=== PATIENT | female | born 2000 | race Caucasian/White ===

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

== ENCOUNTER 2018-01-07 09:19 | Emergency (ER) | payer OTHER ==
[2018-01-07 09:28] VITALS: BP 114/76; PULSE 94; RESP 16; TEMP 98.2
--- NOTE | 2018-01-07 10:49 | ED ---
Chest Pain HPI - General Chief Complaint: Chest Pain Stated Complaint: chest pain, lt sided weakness Time Seen by Provider: 01/07/18 09:27 Source: patient, RN notes reviewed Mode of arrival: ambulatory Limitations: no limitations - History of Present Illness Initial Comments: This a 17-year-old female presents emergency Department chief complaint of chest pain, left arm pain. Patient states that she has been in the hospital and has had outpatient follow-up with audiology for palpitations and chest pain. Patient states that she has a normal echo while in the hospital and has a normal troponins. Patient states that she had a recent stress test which showed some small abnormality's and they wanted to perform a stress test with echo. 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 Patient states the pain made it feel weak but she has no focal weakness. Denies any headache, dizziness, neck pain, back pain, nausea vomiting. Patient states that she does not take any current medications. Patient has no family heart disease history. Patient states that most her symptoms started over a month ago after taking Adipex. - Related Data Home Medications Medication Instructions Recorded Confirmed Medroxyprogesterone Acetate 150 mg IM Q90D 11/24/17 11/24/17 [Depo-Provera] Previous Rx's Medication Instructions Recorded Acetaminophen Tab [Tylenol] 650 mg PO Q4HR PRN tab 11/25/17 Albuterol Inhaler [Ventolin Hfa 1 - 2 puff INHALATION RT-Q6H PRN 11/25/17 Inhaler] #1 inhaler Allergies Allergy/AdvReac Type Severity Reaction Status Date / Time nickel AdvReac Rash/Hives Verified 01/07/18 09:31 tuna Allergy Rash/Hives Uncoded 01/07/18 09:31 Review of Systems ROS Statement: Those systems with pertinent positive or pertinent negative responses have been documented in the HPI. ROS Other: All systems not noted in ROS Statement are negative. EKG Findings - EKG Comments: EKG Findings:: EKG performed at 9:44 sinus rhythm with short CA rate of 78 CA 102 QRS 102 QT/QTC 392/446 there is noted prior short CA on prior EKG no acute abnormality's. Past Medical History Past Medical History: Asthma Additional Past Medical History / Comment(s): Palpitations 10/2017, Abnormal Stress Test History of Any Multi-Drug Resistant Organisms: None Reported Past Surgical History: Section Additional Past Surgical History / Comment(s): 12/24/16 Past Anesthesia/Blood Transfusion Reactions: No Reported Reaction Past Psychological History: No Psychological Hx Reported Smoking Status: Never smoker Past Alcohol Use History: None Reported Past Drug Use History: None Reported - Past Family History Mother Family Medical History: No Reported History Additional Family Medical History / Comment(s): Mother is healthy. Thyroid issues run on mother's side of family. Father Family Medical History: Hypertension General Exam Limitations: no limitations General appearance: alert, in no apparent distress Head exam: Present: atraumatic, normocephalic, normal inspection Neck exam: Present: normal inspection, full ROM. Absent: tenderness, meningismus, lymphadenopathy Respiratory exam: Present: normal lung sounds bilaterally, chest wall tenderness (Moderate left anterior, shoulder region). Absent: respiratory distress, wheezes, rales, rhonchi, stridor Cardiovascular Exam: Present: regular rate, normal rhythm, normal heart sounds. 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 Absent: tenderness Neurological exam: Present: alert, oriented X3, CN II-XII intact, reflexes normal. Absent: motor sensory deficit Course Vital Signs 01/07/18 09:21 Temperature 98.2 F Pulse Rate 94 Respiratory 16 Rate Blood Pressure 114/76 O2 Sat by Pulse 97 Oximetry Chest Pain MDM - MDM 17-year-old female presented for left-sided chest discomfort. Patient has reproducible left-sided chest wall and left shoulder pain. Pain is worse with movement. EKG does not show an acute abnormality's there was no changes from prior. Patient has had adequate out patient follow-up and has stress echo scheduled. This is felt not to be cardiac in nature. This is reproducible muscular skeletal pain. We discussed return parameters and close follow-up. Disposition Clinical Impression: Chest wall pain Disposition: HOME SELF-CARE Condition: Stable Instructions: Chest Wall Pain (ED) Additional Instructions: Please return to the Emergency Department if symptoms worsen or any other concerns. Is patient prescribed a controlled substance at d/c from ED?: No Referrals: Josie Woods MD [Primary Care Provider] - 1-2 days Time of Disposition: 10:49
--- NOTE | 2018-01-07 10:52 | XR ---
EXAMINATION TYPE: XR chest 2V DATE OF EXAM: 01/07/2018 HISTORY: Chest tightness. REFERENCE: Previous study dated 11/27/2017. FINDINGS: The lungs are clear. Pleural space are clear. The heart is not enlarged. IMPRESSION: NORMAL CHEST.
== END 2018-01-07 11:35 | disposition home or self-care (01) ==
LOC: EC 09:19
DX: R07.89 Other chest pain (principal); M25.512 Pain in left shoulder; J45.909 Unspecified asthma, uncomplicated; Z79.899 Other long term (current) drug therapy; Z91.013 Allergy to seafood; Z91.048 Other nonmedicinal substance allergy status
CPT/HCPCS: 71046; 93005; 99285

== ENCOUNTER 2019-09-21 19:20 | Outpatient (CLI) | payer OTHER, BC ==
[2019-09-21] MEDS ORDERED: LACTATED RINGERS 1,000 ML IV ONE (20:15)
[2019-09-21 20:26] LABS: Appearance,Urine Cloudy (Clear); Bacteria,Urine Rare /hpf; Bilirubin,Urine Negative (Negative); Blood,Urine Negative (Negative); Color,Urine Yellow; Glucose,Urine (UA) Negative (Negative); Hyaline Casts,Urine 5 /lpf (0-2); Ketones,Urine Negative (Negative); Leukocyte Esterase,Urine Moderate (Negative); Mucus,Urine Rare /hpf; Nitrite,Urine Negative (Negative); Protein,Urine Negative (Negative); RBC,Urine 1 /hpf (0-5); Specific Gravity,Urine 1.016 (1.001-1.035); Squamous Epithelial Cell,Urine 26 /hpf (0-4); Urobilinogen,Urine <2.0 mg/dL (<2.0); WBC,Urine 11 /hpf (0-5)
[2019-09-21 20:36] LABS: Basophils % (A) 0 %; Eosinophils # (A) 0.3 k/uL (0-0.7); Eosinophils % (A) 3 %; HCT 36.4 % (34.0-46.0); HGB 11.9 gm/dL (11.4-16.0); Lymphocytes # (A) 1.9 k/uL (1.0-4.8); Lymphocytes % (A) 17 %; MCH 29.5 pg (25.0-35.0); MCHC 32.7 g/dL (31.0-37.0); MCV 90.2 fL (80.0-100.0); Mean Platelet Volume 10.3; Monocytes # (A) 0.4 k/uL (0-1.0); Monocytes % (A) 4 %; Neutrophils # (A) 8.4 k/uL (1.3-7.7); Neutrophils % (A) 75 %; Platelet Count 114 k/uL (150-450); RBC 4.04 m/uL (3.80-5.40); RDW 14.3 % (11.5-15.5); WBC 11.3 k/uL (3.8-10.6)
[2019-09-21 21:34] VITALS: BP 122/59; PULSE 102; RESP 16; TEMP 98.3
--- NOTE | 2019-09-22 07:28 | P.MSEPDOC ---
Presenting Problems - Arrival Data Date of Arrival on Unit: 09/21/19 Time of Arrival on Unit: 19:18 Mode of Transport: Ambulatory - Complaint OB-Reason for Admission/Chief Complaint: Pain Comment: RUQ pain x3 days, decreased movement Medical History - Information : 2 Para: 1 Number of Living Children: 1 - Gestational Age Gestational Age by ADAM (wks/days): 28 Weeks and 5 Days Review of Systems - Review of Systems Constitutional: No problems Breast: No problems ENT: No problems Cardiovascular: No problems Respiratory: No problems Gastrointestinal: No problems Genitourinary: No problems Musculoskeletal: No problems Neurological: No problems Skin: No problems Vital Signs - Temperature Temperature: 98.3 F Temperature Source: Temporal Artery Scan - Pulse Right Sitting Brachial Pulse Rate: 102 Pulse Assessment Method: Automatic Cuff - Respirations Respiratory Rate: 16 Oxygen Delivery Method: Room Air O2 Sat by Pulse Oximetry: 98 - Blood Pressure Right Arm Sitting Blood Pressure: 122/59 Blood Pressure Mean: 80 Blood Pressure Source: Automatic Cuff Medical Screen Scoring (Pre) - Cervical Exam Dilation: 0 cm = 0 - Uterine Contractions Frequency: > or = 36 weeks =2 Duration: > 40 seconds = 2 Intensity: N/A - Maternal Vital Signs Maternal Temperature: N/A Maternal Blood Pressure: N/A Signs of Preeclampsia: N/A Maternal Respirations: N/A - Maternal Trauma Maternal Trauma: N/A - Assessment - Baby A Baseline FHR: 130 Heart Rate - NICHD Category: Category I (Normal) = 0 NST: Reactive Position: N/A Station: N/A - Total Score - Baby A Total Score - Baby A: 4 - Total Score - Baby B Total Score - Baby B: 4 - Total Score - Baby C Total Score - Baby C: 4 - Level of Risk - Baby A Level of Risk - Baby A: Low (0-5) - Level of Risk - Baby B Level of Risk - Baby B: Low (0-5) - Level of Risk - Baby C Level of Risk - Baby C: Low (0-5) Physician Notification (Pre) - Physician Notified Physician Notified Date: 09/21/19 Physician Notified Time: 20:05 New Order Received: Yes - Notification Comment Comment: iv hydrate, ffn, ua, cbc Disposition - Disposition OB Disposition: Discharge to home Discharge Date: 09/21/19 Discharge Time: 21:23 I agree with the RN Medical Screening Exam: Yes Risk & Benefit of care provided described in d/c instruction: Yes Diagnosis: PAIN, UNSPECIFIED (Patient presented with several days complaints of right upper sided pain. No nausea vomiting or fevers. Cervix is closed. fibronectin is negative. Patient given some IV hydration with resolution of any contraction she was having. At this point there is no evidence of labor. Patient instructed to go home and increase her fluids. Return if she had any concerns are worsening symptomatology.)
== END 2019-09-21 21:23 | disposition home or self-care (01) ==
LOC: FBPOP 19:20
PROVIDERS: ATTEND Obstetrics & Gynecology
DX: O36.8130 Decreased fetal movements, third trimester, not applicable or unspecified (principal); Z3A.28 28 weeks gestation of pregnancy
CPT/HCPCS: 59025; 96365; 82731; 85025; 81001; G0463; 96360; 99214

== ENCOUNTER 2019-11-18 20:15 | Outpatient (CLI) | payer OTHER ==
[2019-11-18 21:19] VITALS: BP 119/68; PULSE 103; RESP 16; TEMP 97.6
--- NOTE | 2019-11-19 07:41 | P.MSEPDOC ---
Presenting Problems - Arrival Data Date of Arrival on Unit: 11/18/19 Time of Arrival on Unit: 20:15 Mode of Transport: Wheelchair - Complaint OB-Reason for Admission/Chief Complaint: Headache, Visual Disturbances, Dizziness Medical History - Information : 2 Para: 1 Term: 1 : 0 Abortions: Spontaneous or Elective: 0 Number of Living Children: 1 - Gestational Age Gestational Age by ADAM (wks/days): 37 Weeks and 0 Days - History Complications: Prior Review of Systems - Review of Systems Constitutional: No problems Breast: No problems ENT: No problems Cardiovascular: No problems Respiratory: No problems Gastrointestinal: No problems Genitourinary: No problems Musculoskeletal: No problems Neurological: Dizziness Skin: No problems Vital Signs - Temperature Temperature: 97.6 F Temperature Source: Temporal Artery Scan - Pulse Right Pulse Rate: 103 Pulse Assessment Method: Automatic Cuff - Respirations Respiratory Rate: 16 Oxygen Delivery Method: Room Air O2 Sat by Pulse Oximetry: 98 - Blood Pressure Right Arm Blood Pressure: 119/68 Blood Pressure Mean: 85 Blood Pressure Source: Automatic Cuff Medical Screen Scoring (Pre) - Cervical Exam Dilation: Exam Deferred Effacement: Exam Deferred Membranes: Intact - Uterine Contractions Frequency: N/A Duration: N/A Intensity: N/A - Maternal Vital Signs Maternal Temperature: N/A Maternal Blood Pressure: N/A Signs of Preeclampsia: N/A Maternal Respirations: N/A - Maternal Trauma Maternal Trauma: N/A - Assessment - Baby A Baseline FHR: 130 Heart Rate - NICHD Category: Category I (Normal) = 0 NST: Reactive Position: N/A Station: N/A - Total Score - Baby A Total Score - Baby A: 0 - Total Score - Baby B Total Score - Baby B: 0 - Total Score - Baby C Total Score - Baby C: 0 - Level of Risk - Baby A Level of Risk - Baby A: Low (0-5) - Level of Risk - Baby B Level of Risk - Baby B: Low (0-5) - Level of Risk - Baby C Level of Risk - Baby C: Low (0-5) Physician Notification (Pre) - Physician Notified Physician Notified Date: 11/18/19 Physician Notified Time: 20:46 New Order Received: Yes - Notification Comment Comment: Dr. Maxwell called and notified of pt's presenting complaint of HENDRICKSON, dizziness, blurred vision since 1600. Pt's vitals are WNL. Pain is tolerable. NST reactive, no other complaints or concerns at this time. Physician ordered for pt to D/C home and to return if symptoms worsen or if she has any s/s of labor, etc. Medical Screen Scoring (Post) - Cervical Exam Dilation: Exam Deferred Effacement: Exam Deferred Membranes: Intact - Uterine Contractions Frequency: N/A Duration: N/A Intensity: N/A - Maternal Vital Signs Maternal Temperature: N/A Maternal Blood Pressure: N/A Signs of Preeclampsia: N/A Maternal Respirations: N/A - Pain Assessment Pain Location and Character: Head Pain Scale Used: Numeric (1 - 10) Pain Intensity: 3 Pain Management Goal: 3 Pain Description: *Acute Pain Frequency: Constant Pain Aggravating Factors: Bright Light Non-Pharmacological Interventions: Darkened Room, Distraction, Inactivity - Maternal Trauma Maternal Trauma: N/A - Assessment - Baby A Heart Rate: 130 Heart Rate - NICHD Category: Category I (Normal) = 0 NST: Reactive Position: N/A Station: N/A - Total Score Total Score - Baby A: 0 Total Score - Baby B: 0 Total Score - Baby C: 0 - Post Treatment Level of Risk Post Treatment Level of Risk - Baby A: Low (0-5) Post Treatment Level of Risk - Baby B: Low (0-5) Post Treatment Level of Risk - Baby C: Low (0-5) Disposition - Disposition OB Disposition: Discharge to home Discharge Date: 11/18/19 Discharge Time: 21:15 I agree with the RN Medical Screening Exam: Yes Risk & Benefit of care provided described in d/c instruction: Yes Diagnosis: HEADACHE
== END 2019-11-18 21:15 | disposition home or self-care (01) ==
LOC: FBPOP 20:15
PROVIDERS: ATTEND Obstetrics & Gynecology
DX: O99.89 Other specified diseases and conditions complicating pregnancy, childbirth and the puerperium (principal); R51 Headache; Z3A.37 37 weeks gestation of pregnancy
CPT/HCPCS: 59025; G0463; 99215

== ENCOUNTER 2019-12-05 05:55 | Inpatient (IN) | payer BC, OTHER ==
[2019-12-04 15:45] VITALS: BMI 38.1
--- NOTE | 2019-12-04 21:42 | P.HPOB ---
History of Present Illness H&P Date: 12/04/19 Chief Complaint: Scheduled repeat section This is a 19 y.o. female, gravida2, para 1, with an estimated date of confinement of 12/11/2019, estimated gestational age of 39-1/7 weeks, who presents for scheduled repeat section. She admits to good movement. has been complicated by thrombocytopenia. She has seen Dr. Romero for this and recently was given a platelet transfusion in preparation for section. Last platelet count was 84,000. She has experienced irregular contractions. labs: GC/Chlamydia-neg RPR-NR Random glucose-83 Hepatits B surface antigen-neg Rubella-immune Hemoglobin-13 Blood type-O+ Quad screen-neg 1 hr. GTT-112 GBS-neg OB Hx: . Hx 1 for failure to progress. 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 Social Hx: Single. Unemployed. Review of Systems Constitutional: Denies chills, Denies fever Eyes: denies blurred vision, denies pain Ears: left: decreased hearing Ears, nose, mouth and throat: Denies headache, Denies sore throat Cardiovascular: Denies chest pain, Denies shortness of breath Respiratory: Denies cough Gastrointestinal: Reports abdominal pain (Irreg. ctxs.) Genitourinary: Reports pelvic pain, Reports Musculoskeletal: Reports low back pain Integumentary: Denies pruritus, Denies rash Neurological: Denies numbness, Denies weakness Psychiatric: Denies anxiety, Denies depression Past Medical History Past Medical History: Asthma, Hearing Disorder / Deafness Additional Past Medical History / Comment(s): currently low platelets-received unit of platelets on 12-04-19, Hx Palpitations 10/2017, Abnormal Stress Test History of Any Multi-Drug Resistant Organisms: None Reported Past Surgical History: Section Additional Past Surgical History / Comment(s): 12/24/16 Past Anesthesia/Blood Transfusion Reactions: No Reported Reaction Additional Past Anesthesia/Blood Transfusion Reaction / Comment(s): received platelets 12-04-19 without problems Past Psychological History: No Psychological Hx Reported Smoking Status: Never smoker Past Alcohol Use History: None Reported Past Drug Use History: None Reported - Past Family History Mother Family Medical History: No Reported History Additional Family Medical History / Comment(s): Mother is healthy. Thyroid issues run on mother's side of family. Father Family Medical History: Hypertension Medications and Allergies Home Medications Medication Instructions Recorded Confirmed Type Pnv,Calcium 72/Iron/Folic Acid 1 tab PO BID 09/21/19 12/05/19 History [ Plus Tablet] Ferrous Sulfate [Iron (65 MG 325 mg PO BID 11/08/19 12/05/19 History Elemental)] predniSONE [Deltasone] 20 mg PO TID 12/04/19 12/05/19 History Allergies Allergy/AdvReac Type Severity Reaction Status Date / Time nickel AdvReac Rash/Hives Verified 12/04/19 15:37 tuna Allergy Rash/Hives Uncoded 12/04/19 15:37 Exam Osteopathic Statement: *. No significant issues noted on an osteopathic structural exam other than those noted in the History and Physical/Consult. Intake and Output 12/04/19 12/04/19 12/04/19 06:59 14:59 22:59 Other: Weight 91.626 kg HEENT: within normal limits Heart: regular rate and rhythm Lungs: clear to auscultation bilaterally Abd: soft, , non-tnder Extremities: neg. Chauncey's heart tones: 140's by doppler Cervix: fingertip/60%/-3 Results Result Diagrams: 12/05/19 07:00 Assessment and Plan (1) 39 weeks gestation of Current Visit: No Status: Acute Code(s): Z3A.39 - 39 WEEKS GESTATION OF SNOMED Code(s): 20598822 (2) Thrombocytopenia affecting Current Visit: No Status: Acute Code(s): O99.119 - OTH DIS OF BLD/BLD-FORM ORG/IMMUN MECHNSM COMP PREG,UNSP TRI; D69.6 - THROMBOCYTOPENIA, UNSPECIFIED SNOMED Code(s): 375701652 Plan: Will give stress dose steroids. Admission for scheduled repeat section. I have discussed the risks, benefits, and alternative therapies for the above- mentioned procedure and for both sedation/anesthesia as well as necessary blood products administration, if indicated, as they pertain to this patient. The patient has indicated her understanding and acceptance of the risks and proc edures discussed.
[~2019-12-05 05:55] MED LIST: FAMOTIDINE 20 MG/2 ML VIAL IV PRN; HYDROmorphone 0.5 MG/0.5 ML SYRINGE IVP PRN; LACTATED RINGERS 1,000 ML IV SCH; LIDOCAINE 1% (10MG/ML) FOR IV START INTRADERMA PRN; ONDANSETRON 4 MG/2 ML VIAL IVP PRN
[2019-12-05] MEDS ORDERED: CITRIC ACID-SODIUM CITRATE 15 ML CUP PO ONE (06:13)
[2019-12-05] MEDS ORDERED: LACTATED RINGERS 1,000 ML IV ONE (06:13)
[2019-12-05 07:22] LABS: Anisocytosis Slight; Basophils % (A) 0 %; Eosinophils # (A) 0.1 k/uL (0-0.7); Eosinophils % (A) 1 %; HCT 34.6 % (34.0-46.0); HGB 11.1 gm/dL (11.4-16.0); Lymphocytes # (A) 2.1 k/uL (1.0-4.8); Lymphocytes % (A) 17 %; MCH 29.6 pg (25.0-35.0); MCHC 32.1 g/dL (31.0-37.0); Mean Platelet Volume 10.8; Monocytes # (A) 0.6 k/uL (0-1.0); Monocytes % (A) 5 %; Neutrophils # (A) 9.2 k/uL (1.3-7.7); Neutrophils % (A) 76 %; Platelet Count 111 k/uL (150-450); RBC 3.76 m/uL (3.80-5.40); RDW 16.1 % (11.5-15.5); WBC 12.1 k/uL (3.8-10.6)
[2019-12-05 07:48] LABS: INR 0.9 (<1.2); Prothrombin Time 9.4 sec (9.0-12.0)
[2019-12-05] MEDS ORDERED: LANOLIN CREAM 5 GM TUBE TOPICAL PRN (08:35)
[2019-12-05] MEDS ORDERED: diphenhydrAMINE 50 MG CAP PO PRN (08:35)
[2019-12-05] MEDS ORDERED: SIMETHICONE 80 MG CHEWABLE PO PRN (08:35)
[2019-12-05] MEDS ORDERED: NALOXONE 0.4 MG/ML 1 ML VIAL IV PRN (08:35)
[2019-12-05] MEDS ORDERED: HYDROcodone/APAP 7.5-325MG 1 EACH TAB PO PRN (08:35)
[2019-12-05] MEDS ORDERED: ACETAMINOPHEN TAB 325 MG TAB PO PRN (08:35)
[2019-12-05] MEDS ORDERED: ONDANSETRON 4 MG/2 ML VIAL IVP PRN (08:35)
[2019-12-05] MEDS ORDERED: OXYTOCIN 20 UNITS/1000 ML NS 1,000 ML IV SCH (08:35)
[2019-12-05] MEDS ORDERED: HYDROcodone/APAP 5-325MG 1 EACH TAB PO PRN (08:35)
[2019-12-05] MEDS ORDERED: diphenhydrAMINE 25 MG CAP PO PRN (08:35)
[2019-12-05] MEDS ORDERED: ZOLPIDEM 5 MG TAB PO PRN (08:35)
[2019-12-05] MEDS ORDERED: METOCLOPRAMIDE 5 MG/ML 2 ML VIAL IVP PRN (08:35)
[2019-12-05] MEDS ORDERED: diphenhydrAMINE 50 MG/ML 1 ML VIAL IVP PRN ×2 (08:35)
--- NOTE | 2019-12-05 08:50 | P.OP ---
Date of Procedure: 12/05/19 Preoperative Diagnosis: 1. Intrauterine at 39 and one sevenths weeks. 2. History of previous section. 3. Thrombocytopenia. Postoperative Diagnosis: Same Procedure(s) Performed: Repeat low transverse section Anesthesia: spinal (Duramorph) Surgeon: Florence Mccall Base Filler Operator #1: Perfecto Gomes Estimated Blood Loss (ml): 600 Pathology: other (Placenta) Condition: stable Disposition: floor Indications for Procedure: This is a 19-year-old female 2 para 1 at 39 and one sevenths weeks who presented to labor and delivery for scheduled repeat low transverse section. She has a history of previous section and has elected to proceed with repeat section. Of note during this she has been diagnosed with thrombocytopenia and has been following with hematology. They did put her on steroids about a week ago and then gave her a platelet transfusion yesterday. She did receive stress dose steroids prior to surgery. Hematology will be consulted for postoperative steroids. I have discussed the risks, benefits, and alternative therapies for the above- mentioned procedure and for both sedation/anesthesia as well as necessary blood products administration, if indicated, as they pertain to this patient. The patient has indicated her understanding and acceptance of the risks and procedures discussed. Operative Findings: A viable male is noted in the vertex presentation with scores of 8 at 1 minute and 9 at 5 minutes and weight of 8 lbs. 8 oz. Nuchal cord times one was noted. Normal uterus tubes and ovaries are noted. Description of Procedure: The patient is taken to the operating room where she is placed in the dorsal supine position with leftward tilt after spinal Duramorph anesthesia is given. She is prepped and draped in the normal sterile fashion. Skin was tested and found to be adequately anesthetized. A Pfannenstiel skin incision was made with a scalpel through the previous laparotomy scar. A second knife was used to carry the incision down to the underlying layer of fascia. The fascia was nicked in the midline with a scalpel and then extended laterally bilaterally with Scales scissors. The anterior lip of the fascia was grasped with 2 Zarina clamps and then dissected off the underlying rectus muscle in the midline with Scales scissors. The inferior aspect of the fascial incision was grasped with 2 Zarina clamps and dissected off the underlying rectus muscle and the midline with Scales scissors. Next the peritoneum layer was tented up with 2 hemostats and then entered sharply with the scalpel. The incision is extended superiorly and inferiorly with Metzenbaum scissors. Next a DeLee retractor is placed. The vesicouterine peritoneum is entered sharply with Metzenbaum scissors and extended laterally bilaterally with Metzenbaum scissors and then the bladder flap is pushed inferiorly. The lower uterine segment is incised in transverse fashion with the scalpel and then bluntly entered with a hemostat. Clear fluid is noted. The incision was then extended laterally bilaterally with 2 fingers. Next the infant's head is delivered through the incision. Nose and mouth are bulb suctioned. The remainder of the is easily delivered and placed on mother's abdomen. Cord is clamped and cut. is taken to warmer by nursing staff. Uterine fundus is gently massaged and placenta is delivered manually. Uterus is exteriorized and cleared of all clots and debris. Uterine incision is closed with 0 Vicryl suture in a running locked fashion. A second layer of 0 Vicryl suture is used in a running fashion for hemostasis. Once adequate hemostasis as assured, the vesicouterine peritoneum is reapproximated with 2-0 Vicryl suture in a running fashion. Posterior cul-de-sac is suctioned of all clots and debris. Uterus is returned to the abdomen. Incision is noted to be hemostatic. Peritoneal layer is closed with 0 Vicryl suture in a running fashion. Muscle layer is reapproximated with 0 Vicryl suture in interrupted fashion. Fascia layer is then closed with 0 PDS suture with 2 sutures meeting in the midline and the knots buried in either side and in the midline. The subcutaneous tissue was then closed with 2-0 Vicryl suture. Skin layer was then closed with navdeep. All sponge and needle counts are correct. The patient is taken to recovery room in stable condition.
[2019-12-05] MEDS: predniSONE 20 MG TAB PO SCH ×2 (10:55→20:39)
[2019-12-05] MEDS: SENNOSIDES-DOCUSATE SODIUM 1 EACH TAB PO SCH ×2 (10:56→20:39)
[2019-12-05] MEDS: KETOROLAC 15 MG/ML 1 ML VIAL IVP PRN ×2 (14:06→22:56)
[2019-12-05] MEDS: LACTATED RINGERS 1,000 ML IV SCH (14:14)
--- NOTE | 2019-12-06 00:30 | P.CONS ---
History of Present Illness - Reason for Consult Consult date: 12/05/19 thrombocytopenia - History of Present Illness The patient is a 19-year-old white female who was recently referred to our practice in early 11/14. She was in her second and was noted to have a drop in platelet counts into the 70-80,000 range. It is felt that she most likely had thrombocytopenia . Platelet counts remained in a safe range, that is above 50,000 The patient was scheduled for a . As it was felt that the patient count of greater than [id number] would be required for epidural, she received oral steroids for a week prior to surgery. As platelet counts were stable, but still below 100,000, she received a unit of platelets, and procedure to C- section on 12/05/19. Platelet count at the time of procedure was 111,000. She tolerated the procedure well and was delivered of a healthy baby boy Consult was placed for further evaluation and recommendations The patient was on 60 mg of prednisone prior to surgery, and received a stress dose of hydrocortisone for anesthesia. Review of Systems Constitutional: Reports fatigue Eyes: denies blurred vision, denies pain Ears: deny: decreased hearing, ear discharge, earache, tinnitus Ears, nose, mouth and throat: Denies headache, Denies sore throat Cardiovascular: Denies chest pain, Denies shortness of breath Respiratory: Denies cough Gastrointestinal: Denies abdominal pain, Denies diarrhea, Denies nausea, Denies vomiting Psychiatric: Denies anxiety, Denies depression Endocrine: Reports fatigue, Reports weight change Hematologic/Lymphatic: Reports as per HPI Past Medical History Past Medical History: Asthma, Hearing Disorder / Deafness Additional Past Medical History / Comment(s): currently low platelets-received unit of platelets on 12-04-19, Hx Palpitations 10/2017, Abnormal Stress Test History of Any Multi-Drug Resistant Organisms: None Reported Past Surgical History: Section Additional Past Surgical History / Comment(s): 12/24/16 Past Anesthesia/Blood Transfusion Reactions: No Reported Reaction Additional Past Anesthesia/Blood Transfusion Reaction / Comm: received platelets 12-04-19 without problems Past Psychological History: No Psychological Hx Reported Smoking Status: Never smoker Past Alcohol Use History: None Reported Past Drug Use History: None Reported - Past Family History Mother Family Medical History: No Reported History Additional Family Medical History / Comment(s): Mother is healthy. Thyroid issues run on mother's side of family. Father Family Medical History: Hypertension Medications and Allergies Home Medications Medication Instructions Recorded Confirmed Type Pnv,Calcium 72/Iron/Folic Acid 1 tab PO BID 09/21/19 12/05/19 History [ Plus Tablet] Ferrous Sulfate [Iron (65 MG 325 mg PO BID 11/08/19 12/05/19 History Elemental)] predniSONE [Deltasone] 20 mg PO TID 12/04/19 12/05/19 History Allergies Allergy/AdvReac Type Severity Reaction Status Date / Time nickel AdvReac Rash/Hives Verified 12/04/19 15:37 tuna Allergy Rash/Hives Uncoded 12/04/19 15:37 Physical Exam Vitals: Vital Signs Temp Pulse Resp BP Pulse Ox 12/05/19 16:00 98.1 F 80 16 110/51 98 12/05/19 11:35 97.0 F L 81 100/59 97 12/05/19 10:46 97.1 F L 79 17 113/56 98 12/05/19 10:16 80 17 113/60 97 12/05/19 09:45 96.8 F L 84 17 124/61 97 12/05/19 09:31 84 18 125/58 96 12/05/19 09:16 77 17 129/60 97 12/05/19 09:01 78 17 126/68 97 12/05/19 08:46 97.2 F L 77 17 129/59 97 12/05/19 06:13 96.8 F L 100 16 111/67 98 Intake and Output 12/05/19 12/05/19 12/06/19 14:59 22:59 06:59 Intake Total 480 Output Total 550 Balance -70 Intake: Oral 480 Output: Urine 550 Other: Voiding Method Indwelling Catheter - Constitutional General appearance: no acute distress - EENT Eyes: EOMI, PERRLA ENT: hearing grossly normal, normal oropharynx - Neck Neck: no lymphadenopathy Thyroid: bilateral: normal size - Respiratory Respiratory: bilateral: CTA - Cardiovascular Rhythm: regular Heart sounds: normal: S1, S2 - Gastrointestinal tenderness around surgical site General gastrointestinal: normal bowel sounds, soft - Integumentary Integumentary: normal - Neurologic Neurologic: CNII-XII intact - Musculoskeletal Musculoskeletal: generalized weakness, strength equal bilaterally - Psychiatric Psychiatric: A&O x's 3, appropriate affect Results CBC & Chem 7: 12/05/19 07:00 Labs: Abnormal Lab Results - Last 24 Hours (Table) 12/05/19 12/05/19 Range/Units 07:00 07:00 WBC 12.1 H (3.8-10.6) k/uL RBC 3.76 L (3.80-5.40) m/uL Hgb 11.1 L (11.4-16.0) gm/dL RDW 16.1 H (11.5-15.5) % Plt Count 111 L (150-450) k/uL Neutrophils # 9.2 H (1.3-7.7) k/uL APTT 21.0 L (22.0-30.0) sec Assessment and Plan (1) Thrombocytopenia affecting Narrative/Plan: the patient had mild drop in platelet count during her which is her 2nd one. She had an uneventful first . Platelet count during this stayed in the [id number]. Thus it was most likely due to benign dilutional thrombocytopenia . Typically no intervention is required, as platelets stayed stable well within a safe range. The patient had intervention so that she could have epidural for her , for which anesthesia requires a count of 90 - 100,000. The patient did not respond to steroids prior to surgery (which typically doesn't occur with dilutional thrombocytopenia of ). She therefore received platelets prior to surgery with platelet counts increasing to greater than 100,000 - Decrease prednisone to 40 mg per day and taper off within 1 week - Monitor platelet counts. Typically these would be expected to increase after delivery Current Visit: No Status: Acute Code(s): O99.119 - OTH DIS OF BLD/BLD-FORM ORG/IMMUN MECHNSM COMP PREG,UNSP TRI; D69.6 - THROMBOCYTOPENIA, UNSPECIFIED SNOMED Code(s): 872653243 (2) Anemia Narrative/Plan: Mild, with hemoglobin 11.1. Most likely due to . Continue pretnatals after delivery Current Visit: Yes Status: Acute Code(s): D64.9 - ANEMIA, UNSPECIFIED SNOMED Code(s): 390224703
[2019-12-06] MEDS: LACTATED RINGERS 1,000 ML IV SCH (00:45)
[2019-12-06 06:03] LABS: Anisocytosis Slight; Basophils % (A) 0 %; Eosinophils % (A) 0 %; HGB 10.7 gm/dL (11.4-16.0); Lymphocytes # (A) 1.5 k/uL (1.0-4.8); Lymphocytes % (A) 10 %; MCHC 32.4 g/dL (31.0-37.0); MCV 92.4 fL (80.0-100.0); Mean Platelet Volume 11.2; Monocytes # (A) 0.5 k/uL (0-1.0); Monocytes % (A) 4 %; Neutrophils # (A) 12.5 k/uL (1.3-7.7); Neutrophils % (A) 85 %; Platelet Count 120 k/uL (150-450); RBC 3.58 m/uL (3.80-5.40); WBC 14.7 k/uL (3.8-10.6)
[2019-12-06 06:21] LABS: Large Platelets Present
[2019-12-06] MEDS: SENNOSIDES-DOCUSATE SODIUM 1 EACH TAB PO SCH ×2 (08:22→20:25)
[2019-12-06] MEDS: predniSONE 20 MG TAB PO SCH ×2 (08:23→20:59)
--- NOTE | 2019-12-06 09:04 | P.PNOBGPC ---
Subjective - Subjective Principal diagnosis: Status post repeat section postoperative day #1 Interval history: Patient is doing well. She is ambulating without difficulty. Lochia is decreasing. Her pain is fairly well controlled. Patient reports: Reports appetite normal, Reports voiding normally, Reports pain well controlled, Reports ambulating normally [place]: doing well Objective - Vital Signs Latest vital signs: Vital Signs Temp Pulse Resp BP Pulse Ox 12/06/19 00:00 98.3 F 75 16 119/76 97 12/05/19 20:00 98.1 F 71 16 111/63 97 12/05/19 16:00 98.1 F 80 16 110/51 98 12/05/19 11:35 97.0 F L 81 100/59 97 12/05/19 10:46 97.1 F L 79 17 113/56 98 12/05/19 10:16 80 17 113/60 97 12/05/19 09:45 96.8 F L 84 17 124/61 97 12/05/19 09:31 84 18 125/58 96 12/05/19 09:16 77 17 129/60 97 Intake and Output 12/05/19 12/06/19 12/06/19 22:59 06:59 14:59 Output Total 250 Balance -250 Output: Urine 250 Other: # Voids 1 - Exam Extremities: Present: normal. Absent: tenderness, edema Abdomen: Present: normal appearance, soft (Positive bowel sounds 4). Absent: distention, tenderness Incision: Present: normal, dry, intact. Absent: erythematous Uterus: Present: normal, firm. Absent: tenderness - Labs Labs: Abnormal Lab Results - Last 24 Hours (Table) 12/06/19 Range/Units 04:30 WBC 14.7 H (3.8-10.6) k/uL RBC 3.58 L (3.80-5.40) m/uL Hgb 10.7 L (11.4-16.0) gm/dL Hct 33.0 L (34.0-46.0) % RDW 16.0 H (11.5-15.5) % Plt Count 120 L (150-450) k/uL Neutrophils # 12.5 H (1.3-7.7) k/uL Assessment and Plan Assessment: Status post repeat section postoperative day #1 (1) 39 weeks gestation of Current Visit: No Status: Acute Code(s): Z3A.39 - 39 WEEKS GESTATION OF SNOMED Code(s): 28499902 (2) Thrombocytopenia affecting Current Visit: No Status: Acute Code(s): O99.119 - OTH DIS OF BLD/BLD-FORM ORG/IMMUN MECHNSM COMP PREG,UNSP TRI; D69.6 - THROMBOCYTOPENIA, UNSPECIFIED SNOMED Code(s): 069478153 Plan: Continue with postoperative and care. Will advance diet as tolerated. Will switch to oral pain medications.
--- NOTE | 2019-12-06 10:12 | P.PN ---
Progress Note - Text Progress Note Date: 12/06/19 Patient seen in room this morning at 0630 am. She is post-operative day #1 following C/S under SAB/duramorph Patient is doing well. No complaint of pain. No side effects noted from the duramorph. To follow up as indicated
[2019-12-06] MEDS: IBUPROFEN 600 MG TAB PO PRN ×2 (12:26→20:38)
[2019-12-07 00:44] VITALS: PULSE 71
[2019-12-07] MEDS: IBUPROFEN 600 MG TAB PO PRN ×2 (03:21→09:07)
[2019-12-07 08:41] VITALS: BP 136/80; RESP 18; TEMP 98.4
[2019-12-07] MEDS: SENNOSIDES-DOCUSATE SODIUM 1 EACH TAB PO SCH (08:42)
--- NOTE | 2019-12-07 09:03 | P.DS ---
Providers Date of admission: 12/05/19 05:55 Expected date of discharge: 12/07/19 Attending physician: Florence Mccall Consults: 12/05/19 08:35 Consult Physician Urgent Consulting Provider: Anand Romero Consult Reason/Comments: Thrombocytopenia, steroid taper after stress dose steroids Do you want consulting provider notified?: Yes Primary care physician: Stated None - Discharge Diagnosis(es) (1) 39 weeks gestation of Current Visit: No Status: Acute (2) Thrombocytopenia affecting Current Visit: No Status: Acute Hospital Course: This is a 19-year-old female 2 para 1 at 39 and one sevenths weeks who presented for scheduled repeat section. Her was complicated by thrombocytopenia of . She did receive steroids and platelets prior to delivery. She is currently tapering off of stress dose steroids. She delivered a viable male infant on 12/05/2019 via repeat section. Infant weight was 8 lbs. 8 oz. Her course has been essentially uncomplicated. She is bottle feeding. Lochia is decreasing. Pain is well- controlled with ibuprofen and Tylenol. She is urinating without difficulty. She is passing flatus and bowel movement. Vital signs are stable. Abdomen is soft with positive bowel sounds 4. Incision is clean dry and intact with navdeep in place. Extremities show negative Homans. Impression is status post repeat section postoperative day #2. Plan is to discharge home today. Routine postoperative and instructions are given. She will be given a prescription for ibuprofen. She will follow up with hematology for her thrombocytopenia. Will defer dosing of prednisone to hematology. Patient Condition at Discharge: Stable Plan - Discharge Summary Discharge Rx Participant: No New Discharge Prescriptions: New Ibuprofen [Motrin] 600 mg PO Q6HR PRN #60 tab PRN Reason: Mild Pain Or Fever >= 100.5 No Action Pnv,Calcium 72/Iron/Folic Acid [ Plus Tablet] 1 tab PO BID Ferrous Sulfate [Iron (65 MG Elemental)] 325 mg PO BID predniSONE [Deltasone] 20 mg PO TID Discharge Medication List Pnv,Calcium 72/Iron/Folic Acid [ Plus Tablet] 1 tab PO BID 09/21/19 [History] Ferrous Sulfate [Iron (65 MG Elemental)] 325 mg PO BID 11/08/19 [History] predniSONE [Deltasone] 20 mg PO TID 09/08/20 [History] Ibuprofen [Motrin] 600 mg PO Q6HR PRN #60 tab 12/07/19 [Rx] Follow up Appointment(s)/Referral(s): Florence Mccall DO [Doctor of Osteopathic Medicine] - 1 Week Activity/Diet/Wound Care/Special Instructions: Instructions 1. Do not begin any exercise program for 3 weeks. 2. Do not resume sexual relations for 3 weeks or longer if uncomfortable. 3. You may take tub baths or showers at any time. 4. You may use tampons if desired after 3 weeks. 5. Keep the area of episiotomy (stitches) clean and dry. 6. If you are not nursing, wear a good fitting, supportive bra during the day and limit fluid intake for at least 1 week to prevent breast engorgement. 7. Call the office, [phone], within the next week to make appointment for your 6 week checkup if it has not already been made. 8. Report any of the following occurrences to the doctor promptly: a. Heavy, excessive bleeding b. Chills, fever c. Burning or frequency of urination d. Pain or redness and breasts if nursing e. Increasing pain or swelling in episiotomy (stitches). In addition to the above instructions, the following additional should be followed: 1. No heavy lifting or straining (exercising) until after 6 week checkup. 2. Keep abdominal incision clean and dry: You may wear a dressing if more comfortable. 3. Make office appointment for 10 days after going home or as instructed by her doctor. Discharge Disposition: HOME SELF-CARE
[2019-12-07] MEDS: predniSONE 20 MG TAB PO SCH (09:10)
== END 2019-12-07 09:55 | disposition home or self-care (01) | DRG 787 ==
LOC: 4FBP 05:55
PROVIDERS: ADMIT Obstetrics & Gynecology; ATTEND Obstetrics & Gynecology
PROC: 10D00Z1 Extraction of Products of Conception, Low, Open Approach (ICD-10-PCS; principal; 2019-12-05 08:00)
DX: O34.211 Maternal care for low transverse scar from previous cesarean delivery (principal); O99.12 Other diseases of the blood and blood-forming organs and certain disorders involving the immune mechanism complicating childbirth; D69.59 Other secondary thrombocytopenia; O99.52 Diseases of the respiratory system complicating childbirth; H91.90 Unspecified hearing loss, unspecified ear; J45.909 Unspecified asthma, uncomplicated; D64.9 Anemia, unspecified; O99.02 Anemia complicating childbirth; O69.81X0 Labor and delivery complicated by cord around neck, without compression, not applicable or unspecified; Z37.0 Single live birth; Z3A.39 39 weeks gestation of pregnancy; Z79.52 Long term (current) use of systemic steroids; Z79.899 Other long term (current) drug therapy; Z91.018 Allergy to other foods; Z91.048 Other nonmedicinal substance allergy status; Z82.49 Family history of ischemic heart disease and other diseases of the circulatory system; Z83.49 Family history of other endocrine, nutritional and metabolic diseases
CPT/HCPCS: 85025; 85610; 85730; 86850; 86900; 86901; 88307

== ENCOUNTER 2021-01-05 20:49 | Emergency (ER) | payer BC, OTHER ==
[2021-01-05 22:04] VITALS: TEMP 99
--- NOTE | 2021-01-05 23:28 | ED ---
Abdominal Pain HPI - General Chief Complaint: Abdominal Pain Stated Complaint: Fell down the stairs, 12 weeks Time Seen by Provider: 01/05/21 22:23 Source: patient, family Mode of arrival: ambulatory Limitations: no limitations - History of Present Illness Initial Comments: 's patient is a 20-year-old woman who complains of having pain to the right side of her abdomen. She notes that it started after she had fallen. She states that she had fallen around 2 PM when she tripped over her child and then fell down a couple of stairs. She states that she initially landed on her left side but the pain is now on her right side. She has not noted any other symptoms. No head or neck injury. No chest pain or dyspnea. No change in urination. Her last bowel movement was prior to the fall. The patient has not had any vaginal bleeding or discharge. She states that she is approximately 12 weeks . She is not having any lower abdominal pain or cramping MD Complaint: abdominal pain Onset/Timin -: hour(s) Location: RUQ, RLQ Radiation: none Migration to: no migration Severity: moderate Quality: aching Consistency: constant Improves With: nothing Worsens With: nothing Associated Symptoms: denies other symptoms - Related Data Home Medications Medication Instructions Recorded Confirmed Pnv,Calcium 72/Iron/Folic Acid 1 tab PO BID 09/21/19 12/05/19 [ Plus Tablet] Ferrous Sulfate [Iron (65 MG 325 mg PO BID 11/08/19 12/05/19 Elemental)] predniSONE [Deltasone] 20 mg PO TID 12/04/19 12/05/19 Previous Rx's Medication Instructions Recorded Ibuprofen [Motrin] 600 mg PO Q6HR PRN #60 tab 12/07/19 Allergies Allergy/AdvReac Type Severity Reaction Status Date / Time nickel AdvReac Rash/Hives Verified 01/05/21 22:04 tuna Allergy Rash/Hives Uncoded 01/05/21 22:04 Review of Systems ROS Statement: Those systems with pertinent positive or pertinent negative responses have been documented in the HPI. ROS Other: All systems not noted in ROS Statement are negative. Constitutional: Denies: fever Respiratory: Denies: cough, dyspnea Cardiovascular: Denies: chest pain, palpitations, edema Gastrointestinal: Reports: as per HPI, abdominal pain. Denies: nausea, vomiting, diarrhea, constipation Genitourinary: Denies: dysuria, hematuria, discharge, abnormal menses Musculoskeletal: Denies: back pain Skin: Denies: rash Neurological: Denies: headache, weakness, numbness Past Medical History Past Medical History: Asthma Additional Past Medical History / Comment(s): Palpitations 10/2017, Abnormal Stress Test History of Any Multi-Drug Resistant Organisms: None Reported Past Surgical History: Section Additional Past Surgical History / Comment(s): 12/24/16 . Scheduled for on 12-05-2019 Past Anesthesia/Blood Transfusion Reactions: No Reported Reaction Additional Past Anesthesia/Blood Transfusion Reaction / Comment(s): received platelets 12-04-19 without problems Past Psychological History: No Psychological Hx Reported Smoking Status: Never smoker Past Alcohol Use History: None Reported Past Drug Use History: None Reported - Past Family History Mother Family Medical History: No Reported History Additional Family Medical History / Comment(s): Mother is healthy. Thyroid issues run on mother's side of family. Father Family Medical History: Hypertension General Exam Limitations: no limitations General appearance: alert, in no apparent distress Head exam: Present: atraumatic, normocephalic Eye exam: Present: normal appearance. Absent: scleral icterus, conjunctival injection Neck exam: Present: normal inspection, full ROM. Absent: tenderness Respiratory exam: Present: normal lung sounds bilaterally. Absent: respiratory distress, wheezes, rales, rhonchi, stridor Cardiovascular Exam: Present: regular rate, normal rhythm, normal heart sounds. Absent: systolic murmur, diastolic murmur, rubs, gallop GI/Abdominal exam: Present: soft, tenderness (Mild right-sided abdominal tenderness without rebound or guarding). Absent: distended, guarding, rebound, rigid, mass Extremities exam: Present: normal inspection, normal capillary refill. Absent: pedal edema, calf tenderness Back exam: Present: normal inspection. Absent: CVA tenderness (R), CVA tenderness (L) Neurological exam: Present: alert Skin exam: Present: warm, dry, intact, normal color. Absent: rash Course Vital Signs 01/05/21 01/05/21 01/05/21 21:54 22:34 23:39 Temperature 99 F Pulse Rate 96 95 90 Respiratory 20 18 18 Rate Blood Pressure 120/73 147/94 144/77 O2 Sat by Pulse 95 96 96 Oximetry 01/06/21 01/06/21 01:13 02:10 Temperature Pulse Rate 80 88 Respiratory 18 19 Rate Blood Pressure 112/65 122/78 O2 Sat by Pulse 96 98 Oximetry Medical Decision Making - Lab Data Result diagrams: 01/05/21 23:33 01/05/21 23:33 Lab Results 01/05/21 01/05/21 01/05/21 Range/Units 01:14 23:33 23:33 WBC 12.6 H (3.8-10.6) k/uL RBC 4.38 (3.80-5.40) m/uL Hgb 13.1 (11.4-16.0) gm/dL Hct 38.4 (34.0-46.0) % MCV 87.6 (80.0-100.0) fL MCH 30.0 (25.0-35.0) pg MCHC 34.2 (31.0-37.0) g/dL RDW 13.6 (11.5-15.5) % Plt Count 165 (150-450) k/uL MPV 9.6 Neutrophils % 70 % Lymphocytes % 23 % Monocytes % 3 % Eosinophils % 3 % Basophils % 0 % Neutrophils # 8.8 H (1.3-7.7) k/uL Lymphocytes # 2.9 (1.0-4.8) k/uL Monocytes # 0.4 (0-1.0) k/uL Eosinophils # 0.4 (0-0.7) k/uL Basophils # 0.1 (0-0.2) k/uL Sodium 134 L (137-145) mmol/L Potassium 4.0 (3.5-5.1) mmol/L Chloride 105 (98-107) mmol/L Carbon Dioxide 20 L (22-30) mmol/L Anion Gap 9 mmol/L BUN 12 (7-17) mg/dL Creatinine 0.48 L (0.52-1.04) mg/dL Est GFR (CKD-EPI)AfAm >90 (>60 ml/min/1.73 sqM) Est GFR (CKD-EPI)NonAf >90 (>60 ml/min/1.73 sqM) Glucose 97 (74-99) mg/dL Calcium 9.7 (8.4-10.2) mg/dL Total Bilirubin 0.3 (0.2-1.3) mg/dL AST 25 (14-36) U/L ALT 13 (4-34) U/L Alkaline Phosphatase 76 (38-126) U/L Total Protein 7.4 (6.3-8.2) g/dL Albumin 4.0 (3.5-5.0) g/dL Urine Color Yellow Urine Appearance Cloudy H (Clear) Urine pH 6.0 (5.0-8.0) Ur Specific [place] 1.026 (1.001-1.035) Urine Protein Negative (Negative) Urine Glucose (UA) Negative (Negative) Urine Ketones Negative (Negative) Urine Blood Negative (Negative) Urine Nitrite Negative (Negative) Urine Bilirubin Negative (Negative) Urine Urobilinogen <2.0 (<2.0) mg/dL Ur Leukocyte Esterase Moderate H (Negative) Urine RBC 2 (0-5) /hpf Urine WBC 12 H (0-5) /hpf Ur Squamous Epith Cells 13 H (0-4) /hpf Calcium Oxalate Crystal Moderate H (None) /hpf Amorphous Sediment Occasional H (None) /hpf Hyaline Casts 1 (0-2) /lpf Urine Mucus Rare H (None) /hpf Disposition Clinical Impression: Abdominal pain, Subchorionic hematoma in first trimester Disposition: HOME SELF-CARE Condition: Good Instructions (If sedation given, give patient instructions): Abdominal Pain in (ED) Is patient prescribed a controlled substance at d/c from ED?: No Referrals: None,Stated [Primary Care Provider] - 1-2 days Florence Mccall DO [Doctor of Osteopathic Medicine] - 1-2 days
[2021-01-05 23:53] LABS: Basophils # (A) 0.1 k/uL (0-0.2); Basophils % (A) 0 %; Eosinophils # (A) 0.4 k/uL (0-0.7); Eosinophils % (A) 3 %; HCT 38.4 % (34.0-46.0); HGB 13.1 gm/dL (11.4-16.0); Lymphocytes # (A) 2.9 k/uL (1.0-4.8); Lymphocytes % (A) 23 %; MCHC 34.2 g/dL (31.0-37.0); MCV 87.6 fL (80.0-100.0); Mean Platelet Volume 9.6; Monocytes # (A) 0.4 k/uL (0-1.0); Monocytes % (A) 3 %; Neutrophils # (A) 8.8 k/uL (1.3-7.7); Neutrophils % (A) 70 %; Platelet Count 165 k/uL (150-450); RBC 4.38 m/uL (3.80-5.40); RDW 13.6 % (11.5-15.5); WBC 12.6 k/uL (3.8-10.6)
--- NOTE | 2021-01-06 00:01 | US ---
EXAMINATION TYPE: US abdominal trauma organ DATE OF EXAM: 01/05/2021 COMPARISON: NONE CLINICAL HISTORY: fall with right abdominal pain. STAT exam done through the ER; exam limitations due to acute trauma status. All four abdominal quad rants scanned to assess for fluid post trauma. This study is a focused, limited study. This is not a FAST scan as it does not meet the established AIUM guidelines as such. A trauma ultrasound provides a picture of a patient?s condition at one moment in time. It never elim inates the possibility of injury or fluid collections that are below the detectable threshold of an u ltrasound exam. If negative, alternate imaging may be clinically warranted. No sonographic abnormality visualized at this time. No free fluid visualized. IMPRESSION: No sizable fluid collection seen within the abdomen.
[2021-01-06 00:08] LABS: ALT 13 U/L (4-34); AST 25 U/L (14-36); African American GFR (CKD) >90 (>60 ml/min/1.73 sqM); Alkaline Phosphatase 76 U/L (38-126); Anion Gap 9 mmol/L; Blood Urea Nitrogen 12 mg/dL (7-17); Calcium 9.7 mg/dL (8.4-10.2); Carbon Dioxide 20 mmol/L (22-30); Chloride 105 mmol/L (98-107); Glucose 97 mg/dL (74-99); Non-African American GFR(CKD) >90 (>60 ml/min/1.73 sqM); Sodium 134 mmol/L (137-145); Total Bilirubin 0.3 mg/dL (0.2-1.3); Total Protein 7.4 g/dL (6.3-8.2)
[2021-01-06] MEDS ORDERED: ACETAMINOPHEN TAB 325 MG TAB PO STA (01:14)
[2021-01-06 02:02] LABS: Amorphous Sediment,Urine Occasional /hpf; Appearance,Urine Cloudy (Clear); Bilirubin,Urine Negative (Negative); Blood,Urine Negative (Negative); Calcium Oxalate Crystals,Urine Moderate /hpf; Color,Urine Yellow; Glucose,Urine (UA) Negative (Negative); Hyaline Casts,Urine 1 /lpf (0-2); Ketones,Urine Negative (Negative); Leukocyte Esterase,Urine Moderate (Negative); Mucus,Urine Rare /hpf; Nitrite,Urine Negative (Negative); Protein,Urine Negative (Negative); RBC,Urine 2 /hpf (0-5); Specific Gravity,Urine 1.026 (1.001-1.035); Squamous Epithelial Cell,Urine 13 /hpf (0-4); Urobilinogen,Urine <2.0 mg/dL (<2.0); WBC,Urine 12 /hpf (0-5)
[2021-01-06 02:11] VITALS: BP 122/78; PULSE 88; RESP 19
--- NOTE | 2021-01-06 02:36 | US ---
EXAMINATION TYPE: Transabdominal DATE OF EXAM: 01/06/2021 2:09 AM COMPARISON: NONE CLINICAL HISTORY: US-post trauma. Patient fell down the stairs this afternoon EXAM PERFORMED: Transabdominal (TA) EXAM MEASUREMENTS: GESTATIONAL AGE / DATING Physician Established: (12 weeks/0 days) EDC: 07/21/2021 Dates by LMP: (12 weeks/0 days) EDC: 07/21/2021 Dates by First Scan: No previous this is first scan Dates by Current Scan for: (11 weeks/6 days) EDC: 07/22/2021 MATERNAL ANATOMY Uterus: 14.5 x 7.5 x 8.6 cm Right Ovary: 2.6 x 2.2 x 1.8 cm Left Ovary: 2.9 x 2.1 x 1.8 cm Post CDS / Adnexa: wnl Presence of free fluid: No Presence of corpus luteal cyst: no Presence of subchorionic bleed: Yes, measuring 1.6 x 0.9 x 1.2 cm GESTATION / SURVEY CRL: 5.1 cm (11 weeks/6 days) Yolk Sac (normal less than 6mm): 4.8 mm Heart Rate: 156 bpm Rhythm: Normal IUP: Viable IUP Date of LMP: Unsure Beta HcG (if available): Not available at this time Viable IUP, measurements consistent with dates. Subchorionic bleed measuring 1.6 x 0.9 x 1.2 cm IMPRESSION: Viable intrauterine 11 weeks 6 days of the heart. 156 bpm. There is a 1.6 cm subchorionic h emorrhage.
== END 2021-01-06 03:09 | disposition home or self-care (01) ==
LOC: EC 20:49
DX: O9A.211 Injury, poisoning and certain other consequences of external causes complicating pregnancy, first trimester (principal); S30.1XXA Contusion of abdominal wall, initial encounter; O99.511 Diseases of the respiratory system complicating pregnancy, first trimester; J45.909 Unspecified asthma, uncomplicated; Z91.09 Other allergy status, other than to drugs and biological substances; Z79.899 Other long term (current) drug therapy; W10.9XXA Fall (on) (from) unspecified stairs and steps, initial encounter; Y92.009 Unspecified place in unspecified non-institutional (private) residence as the place of occurrence of the external cause; Z3A.12 12 weeks gestation of pregnancy
CPT/HCPCS: 36415; 76705; 76801; 80053; 81001; 85025; 99284

== ENCOUNTER 2021-02-09 22:17 | Emergency (ER) | payer OTHER ==
[2021-02-09 23:26] VITALS: BP 116/78; PULSE 91; RESP 18; TEMP 98.3
[2021-02-10 02:50] LABS: Bacteria,Urine Rare /hpf; Hyaline Casts,Urine 3 /lpf (0-2); Mucus,Urine Many /hpf; RBC,Urine 3 /hpf (0-5); Squamous Epithelial Cell,Urine 11 /hpf (0-4); WBC,Urine 31 /hpf (0-5)
[2021-02-10 02:58] LABS: Appearance,Urine Clear (Clear); Color,Urine Dark Orange
--- NOTE | 2021-02-10 03:11 | ED ---
Female Urogenital HPI - General Chief complaint: Urogenital Stated complaint: 17 wks preg, Bleeding Time Seen by Provider: 02/10/21 01:37 Source: patient, RN notes reviewed Mode of arrival: ambulatory Limitations: no limitations - History of Present Illness Initial comments: Patient is a 20-year-old female, currently 17 weeks , [facility] with concerns of a UTI. Patient states she went to urgent care yesterday and was diagnosed with the UTI, given amoxicillin and Pyridium. Patient states today she started as her urine is very dark and feels like there might be some blood in there. She denies any vaginal bleeding, no abdominal pain. She denies any fevers or chills, no nausea or vomiting. This is her third , [employer] is Dr. Mccall. She denies any chest pain or short of breath, no cough or chills. She has no further complaints. Her vital signs are stable upon arrival. - Related Data Home Medications Medication Instructions Recorded Confirmed Pnv,Calcium 72/Iron/Folic Acid 1 tab PO BID 09/21/19 12/05/19 [ Plus Tablet] Ferrous Sulfate [Iron (65 MG 325 mg PO BID 11/08/19 12/05/19 Elemental)] predniSONE [Deltasone] 20 mg PO TID 12/04/19 12/05/19 Previous Rx's Medication Instructions Recorded Ibuprofen [Motrin] 600 mg PO Q6HR PRN #60 tab 12/07/19 Cephalexin [Keflex] 500 mg PO Q6HR 7 Days #28 cap 02/10/21 Allergies Allergy/AdvReac Type Severity Reaction Status Date / Time nickel AdvReac Rash/Hives Verified 02/09/21 23:26 tuna Allergy Rash/Hives Uncoded 01/05/21 22:04 Review of Systems ROS Statement: Those systems with pertinent positive or pertinent negative responses have been documented in the HPI. ROS Other: All systems not noted in ROS Statement are negative. Past Medical History Past Medical History: Asthma Additional Past Medical History / Comment(s): Palpitations 10/2017, Abnormal Stress Test History of Any Multi-Drug Resistant Organisms: None Reported Past Surgical History: Section Additional Past Surgical History / Comment(s): 12/24/16 . Scheduled for on 12-05-2019 Past Anesthesia/Blood Transfusion Reactions: No Reported Reaction Additional Past Anesthesia/Blood Transfusion Reaction / Comment(s): received platelets 9--20 without problems Past Psychological History: No Psychological Hx Reported Smoking Status: Never smoker Past Alcohol Use History: None Reported Past Drug Use History: None Reported - Past Family History Mother Family Medical History: No Reported History Additional Family Medical History / Comment(s): Mother is healthy. Thyroid issues run on mother's side of family. Father Family Medical History: Hypertension General Exam - General Exam Comments Initial Comments: GENERAL: Patient is well-developed and well-nourished. Patient is nontoxic and in no acute distress. HEAD: Atraumatic, normocephalic. EYES: Pupils equal round and reactive to light, extraocular movements intact, sclera anicteric, conjunctiva are normal. Eyelids were unremarkable. ENT: Moist mucous membranes. NECK: Normal range of motion, supple without lymphadenopathy or JVD. LUNGS: Unlabored respirations. Breath sounds clear to auscultation bilaterally and equal. No wheezes rales or rhonchi. HEART: Regular rate and rhythm without murmurs, rubs or gallops. ABDOMEN: Soft, nontender, normoactive bowel sounds. No guarding, no rebound. No masses appreciated. MUSCULOSKELETAL: Normal extremities with adequate strength and normal range of motion, no pitting or edema. No clubbing or cyanosis. SKIN: Warm, Dry, normal turgor, no rashes or lesions noted. Limitations: no limitations Course Vital Signs 02/09/21 23:23 Temperature 98.3 F Pulse Rate 91 Respiratory 18 Rate Blood Pressure 116/78 O2 Sat by Pulse 97 Oximetry Medical Decision Making - Medical Decision Making Patient is a 20-year-old female, currently 17 weeks , , [employer] is Dr. Mccall here for concerns for UTI. She is diagnosed with one yesterday, given Pyridium and amoxicillin. She thought she was having a blood in her urine and came in for evaluation. We did get heart tones and they were normal anywhere from 136-148 bpm. patient's urine does show wbc clumps and bacteria. I discussed his findings with the patient. I will switch her antibiotic to Keflex. I also discussed with her that Pyridium will make her urine orange color. She is stable for discharge. She has an appointment with her [employer] tomorrow. She is agreeable to this plan of care. - Lab Data Lab Results 02/10/21 Range/Units 01:35 Urine Color Dark [place] Urine Appearance Clear (Clear) Urine RBC 3 (0-5) /hpf Urine WBC 31 H (0-5) /hpf Urine WBC Clumps Rare H (None) /hpf Ur Squamous Epith Cells 11 H (0-4) /hpf Urine Bacteria Rare H (None) /hpf Hyaline Casts 3 H (0-2) /lpf Urine Mucus Many H (None) /hpf Disposition Clinical Impression: UTI (urinary tract infection) during Disposition: HOME SELF-CARE Condition: Stable Instructions (If sedation given, give patient instructions): Urinary Tract Infection in (ED) Additional Instructions: Please return to the Emergency Department if symptoms worsen or any other concerns. Take prescribed antibiotic starting tomorrow. Increase your fluid intake. Foll ow-up with your [employer]. Prescriptions: Cephalexin [Keflex] 500 mg PO Q6HR 7 Days #28 cap Is patient prescribed a controlled substance at d/c from ED?: No Referrals: None,Stated [Primary Care Provider] - 1-2 days Florence Mccall DO [Doctor of Osteopathic Medicine] - 1-2 days Time of Disposition: 03:11
== END 2021-02-10 03:16 | disposition home or self-care (01) ==
LOC: EC 22:17
DX: O23.42 Unspecified infection of urinary tract in pregnancy, second trimester (principal); O99.52 Diseases of the respiratory system complicating childbirth; J45.909 Unspecified asthma, uncomplicated; Z91.048 Other nonmedicinal substance allergy status; Z79.51 Long term (current) use of inhaled steroids; Z3A.17 17 weeks gestation of pregnancy
CPT/HCPCS: 81001; 87086; 99283

== ENCOUNTER 2021-05-04 21:01 | Outpatient (CLI) | payer BC, OTHER ==
[2021-05-04 22:00] VITALS: BP 115/64; PULSE 110; RESP 16; TEMP 96.7
--- NOTE | 2021-05-08 07:56 | P.MSEPDOC ---
Presenting Problems - Arrival Data Date of Arrival on Unit: 05/04/21 Time of Arrival on Unit: 21:01 Mode of Transport: Ambulatory - Complaint OB-Reason for Admission/Chief Complaint: Decreased Movement Medical History - Information : 3 Para: 2 Term: 2 : 0 Abortions: Spontaneous or Elective: 0 Number of Living Children: 2 - Gestational Age Gestational Age by ADAM (wks/days): 28 Weeks and 6 Days - History Complications: Prior Comment: Pt states she will be a repeat Review of Systems - Review of Systems Constitutional: No problems Breast: No problems ENT: No problems Cardiovascular: No problems Respiratory: No problems Gastrointestinal: No problems Genitourinary: No problems Musculoskeletal: No problems Neurological: No problems Skin: No problems Vital Signs - Temperature Temperature: 96.7 F Temperature Source: Temporal Artery Scan - Pulse Pulse Oximetery Pulse Rate: 110 Pulse Assessment Method: Automatic Cuff - Respirations Respiratory Rate: 16 Oxygen Delivery Method: Room Air O2 Sat by Pulse Oximetry: 96 - Blood Pressure Right Arm Blood Pressure: 115/64 Blood Pressure Mean: 81 Blood Pressure Source: Automatic Cuff Medical Screen Scoring - Cervical Exam Membranes: Intact - Assessment - Baby A Baseline FHR: 135 Heart Rate - NICHD Category: Category I (Normal) NST: Reactive Physician Notification - Physician Notified Physician Notified Date: 05/04/21 Physician Notified Time: 21:41 Physician: Martina Maxwell New Order Received: Yes - Notification Comment Comment: Dr. Maxwell updated re: pt c/o decreased movement, last felt baby move. around 1630 today, denies bleeding or leaking of fluid, low platelets per pt with 1 hr glucose test - sees Dr. Mccall tomorrow to readress, c/o tightening across top of abdomen for last few days, abdomen palpated which remains soft and nontender, no contx per palpation or toco, reactive NST and reports of positive movement since arrival in triage. Orders received to d/c pt home at this time Maternal Triage Index - Maternal Triage Index Presenting for scheduled procedure w/no complaint: No - Stat/Priority 1 Stat Priority 1: No - Urgent/Priority 2 Urgent Priority 2: Yes Provider Notified: Martina Maxwell Provider Notified Time: 21:41 Criteria Met for Priority 2: C/o decreased movement Disposition - Disposition OB Disposition: Discharge to home Discharge Date: 05/04/21 Discharge Time: 21:48 I agree with the RN Medical Screening Exam: Yes Case reviewed; plan agreed upon as documented in EMR&OBIX.: Yes Diagnosis: DECREASED MOVEMENTS, THIRD TRIMESTER, FETUS 1
== END 2021-05-04 21:48 | disposition home or self-care (01) ==
LOC: FBPOP 21:01
PROVIDERS: ATTEND Obstetrics & Gynecology
DX: O36.8130 Decreased fetal movements, third trimester, not applicable or unspecified (principal); Z3A.28 28 weeks gestation of pregnancy
CPT/HCPCS: 59025; 99213

== ENCOUNTER 2021-05-28 15:02 | Outpatient (CLI) | payer OTHER ==
[2021-05-28 15:49] VITALS: BP 110/67; PULSE 93; TEMP 97
--- NOTE | 2021-05-28 18:34 | P.MSEPDOC ---
Presenting Problems - Arrival Data Date of Arrival on Unit: 05/28/21 Time of Arrival on Unit: 15:02 Mode of Transport: Ambulatory - Complaint OB-Reason for Admission/Chief Complaint: Decreased Movement Comment: pt presents to triage for decreased movement, has not felt baby move since this am Medical History - Information : 3 Para: 2 Term: 2 : 0 Abortions: Spontaneous or Elective: 0 Number of Living Children: 2 - Gestational Age Gestational Age by ADAM (wks/days): 32 Weeks and 2 Days - History Complications: Prior Review of Systems - Review of Systems Constitutional: No problems Breast: No problems ENT: No problems Cardiovascular: No problems Respiratory: No problems Gastrointestinal: No problems Genitourinary: No problems Musculoskeletal: No problems Neurological: No problems Skin: No problems Vital Signs - Temperature Temperature: 97.0 F Temperature Source: Temporal Artery Scan - Pulse Right Brachial Pulse Rate: 93 Pulse Assessment Method: Automatic Cuff - Respirations Oxygen Delivery Method: Face Tent - Blood Pressure Right Arm Blood Pressure: 110/67 Blood Pressure Mean: 81 Blood Pressure Source: Automatic Cuff Medical Screen Scoring - Uterine Contractions Frequency From (mins): 0 Resting: Soft to palpation - Assessment - Baby A Baseline FHR: 125 Heart Rate - NICHD Category: Category I (Normal) NST: Reactive Physician Notification - Physician Notified Physician Notified Date: 05/28/21 Physician Notified Time: 15:30 Physician: Florence Mccall Order Received: Yes - Notification Comment Comment: reactive nst, pt feeling movement multiple times since arrival to triage, discharged home with instructions to follow up at next scheduled appt Maternal Triage Index - Maternal Triage Index Presenting for scheduled procedure w/no complaint: No - Stat/Priority 1 Stat Priority 1: No - Urgent/Priority 2 Urgent Priority 2: No - Prompt/Priority 3 Prompt Priority 3: Yes Criteria Met for Priority 3: decreased movment, pt GA 32 2/7 Disposition - Disposition OB Disposition: Triage, Discharge to home, Written follow up instructions reviewed Discharge Date: 05/28/21 Discharge Time: 15:40 I agree with the RN Medical Screening Exam: Yes Case reviewed; plan agreed upon as documented in EMR&OBIX.: Yes Diagnosis: DECREASED MOVEMENTS, THIRD TRIMESTER, UNSP
== END 2021-05-28 15:40 | disposition home or self-care (01) ==
LOC: FBPOP 15:02
PROVIDERS: ATTEND Obstetrics & Gynecology
DX: O36.8130 Decreased fetal movements, third trimester, not applicable or unspecified (principal); Z3A.32 32 weeks gestation of pregnancy
CPT/HCPCS: 59025; G0463; 99213

== ENCOUNTER 2021-06-23 23:56 | Outpatient (CLI) | payer OTHER ==
[2021-06-24 02:06] VITALS: BP 123/68; PULSE 109; RESP 17; TEMP 97.1
--- NOTE | 2021-06-24 06:10 | P.MSEPDOC ---
Presenting Problems - Arrival Data Date of Arrival on Unit: 06/23/21 Time of Arrival on Unit: 23:56 Mode of Transport: Wheelchair - Complaint OB-Reason for Admission/Chief Complaint: Decreased Movement, Pain Comment: Patient presents to triage with c/o left sided pain that is sharp since 2100 and decreased movement. Patient rating pain 7 out of 10. Medical History - Information : 3 Para: 2 Term: 2 : 0 Abortions: Spontaneous or Elective: 0 Number of Living Children: 2 - Gestational Age Gestational Age by ADAM (wks/days): 36 Weeks and 1 Days Review of Systems - Review of Systems Constitutional: No problems Breast: No problems ENT: No problems Cardiovascular: No problems Respiratory: No problems Gastrointestinal: No problems Genitourinary: No problems Musculoskeletal: No problems Neurological: No problems Skin: No problems Vital Signs - Temperature Temperature: 97.1 F Temperature Source: Temporal Artery Scan - Pulse Pulse Oximetery Pulse Rate: 109 Pulse Assessment Method: Pulse Oximetry - Respirations Respiratory Rate: 17 Oxygen Delivery Method: Room Air O2 Sat by Pulse Oximetry: 98 - Blood Pressure Right Arm Blood Pressure: 123/68 Blood Pressure Mean: 86 Blood Pressure Source: Automatic Cuff Medical Screen Scoring - Uterine Contractions Intensity: Absent Resting: Soft to palpation - Assessment - Baby A Baseline FHR: 130 Heart Rate - NICHD Category: Category I (Normal) NST: Reactive Physician Notification - Physician Notified Physician Notified Date: 06/24/21 Physician Notified Time: 12:43 Physician: Perfecto Gomes New Order Received: Yes - Notification Comment Comment: Dr. Gomes on the unit reviewing patient's chart. RN gave Dr. Gomes report. on unit - reviewed patient c/o decreased movement and left sided pain, FHT and reactive NST, materal vital signs, maternal history, NETO of 6.3 per patient and negative amnisure result. Per Dr. Gomes, at 1243, RN to watch patient for the next hour. Dr. Gomes at the bedside discussing POC with patient and her mother at 0111. Per Dr. Gomes, RN to keep patient for an additional 30 minutes and then okay to discharge patient home. Maternal Triage Index - Maternal Triage Index Presenting for scheduled procedure w/no complaint: No - Stat/Priority 1 Stat Priority 1: No - Urgent/Priority 2 Urgent Priority 2: Yes Provider Notified: Perfecto Gomes Provider Notified Time: 12:43 Criteria Met for Priority 2: c/o decreased movement Disposition - Disposition OB Disposition: Discharge to home, Written follow up instructions reviewed Discharge Date: 06/24/21 Discharge Time: 01:50 I agree with the RN Medical Screening Exam: Yes Case reviewed; plan agreed upon as documented in EMR&OBIX.: Yes Diagnosis: FALSE LABOR BEFORE 37 COMPLETED WEEKS OF GEST, THIRD TRI (This patient is a 21-year-old 3 para 2 female who presents to labor and delivery with complaints of possible labor. Patient also apparently has been followed by Dr. Mccall for decreased movement of long duration and borderline low amniotic fluid index. Patient states that she has movement in the daytime but not all the time. heart tones are category 1 without any concerning decelerations. At this time there is no evidence of maternal compromise. Patient has appointment this morning for repeat fluid index and visit with Dr. Lamar and she is instructed to keep this appointment.)
== END 2021-06-24 01:50 | disposition home or self-care (01) ==
LOC: FBPOP 23:56
PROVIDERS: ATTEND Obstetrics & Gynecology
DX: O47.03 False labor before 37 completed weeks of gestation, third trimester (principal); Z3A.36 36 weeks gestation of pregnancy
CPT/HCPCS: 59025; 84112; 99213